=== PATIENT | female | born 1945 | race Caucasian/White ===

== ENCOUNTER 2017-11-23 15:52 | Inpatient (IN) ==
[2017-11-23] MEDS ORDERED: HYDROmorphone PF Inj 2 MG/ML Vial IV.PUSH STA ×2 (16:46→17:50)
[2017-11-23 17:25] LABS: Baso % (Auto) 0.2 % (0.0-2.0); Eos % (Auto) 0.1 % (0.0-4.0); Hematocrit 26.4 % (35.0-46.0); Lymph # (Auto) 0.3 th/mm3 (1.0-4.8); Lymph % (Auto) 1.6 % (9.0-44.0); Mean Corpuscular Volume 85.3 fL (80.0-100.0); Mono # (Auto) 0.7 th/mm3 (0.0-0.9); Mono % (Auto) 4.5 % (0.0-8.0); Neut # (Auto) 15.4 th/mm3 (1.8-7.7); Neut % (Auto) 93.6 % (16.0-70.0); Platelet Count 282 th/mm3 (150-450); Red Blood Count 3.09 mil/mm3 (4.00-5.30); Red Cell Distribution Width 15.5 % (11.6-17.2); White Blood Count 16.4 th/mm3 (4.0-11.0)
--- NOTE | 2017-11-23 17:39 | XR ---
EXAM DATE: 11/23/2017 5:34 PM EDT AGE/SEX: 71 years / Female INDICATIONS: Pain in right shoulder 2 weeks. CLINICAL DATA: This is the patient's initial encounter. Patient reports that signs and symptoms have been present for 1 day and indicates a pain score of 10/10. MEDICAL/SURGICAL HISTORY: None. None. COMPARISON: [facility] – [place], CT SHOULDER RIGHT W/O CONTRAST, 11/23/2017. . FINDINGS: The bone density is normal. A heavily comminuted fracture of the humeral head and surgical neck of th e humerus is identified. Displaced fracture fragments are seen. CONCLUSION: Right proximal humerus fracture. Electronically signed by: Ronaldo Crenshaw MD 11/23/2017 5:38 PM EDT
--- NOTE | 2017-11-23 17:46 | CT ---
EXAM DATE: 11/23/2017 5:35 PM EDT AGE/SEX: 71 years / Female INDICATIONS: Trauma; fall two weeks ago. CLINICAL DATA: This is the patient's initial encounter. Patient reports that signs and symptoms have been present for 2 weeks and indicates a pain score of 10/10. MEDICAL/SURGICAL HISTORY: Diabetes. None. RADIATION DOSE: 23.81 CTDI (mGy) COMPARISON: No prior exams available for comparison. TECHNIQUE: Multiple contiguous axial images were acquired using a multirow detector CT scanner witho ut contrast. Multiplanar reconstruction was performed in the sagittal and coronal planes. Using aut omated exposure control and adjustment of the mA and/or kV according to patient size, radiation dose was kept as low as reasonably achievable to obtain optimal diagnostic quality images. DICOM format i mage data is available electronically for review and comparison. FINDINGS: Thin section axial imaging through the right shoulder demonstrates a severely comminuted, impacted fr acture involving the right humeral neck and humeral head. The greater trochanter appears to be at jude st 2 separate fragments. There is fracture through the superior attachment of the rotator cuff as wel l. There is approximately 75-80% replacement of the more distal humerus relative to the humeral head. The glenoid labrum is intact. The scapula is intact. The clavicle is intact. CONCLUSION: 1. Comminuted fracture involving the humeral neck and humeral head. There is a proximally 70-80% dis placement of the humeral neck relative to the humeral head. No bone fragments are identified within t he joint. Electronically signed by: Ed Jackson MD 11/23/2017 5:45 PM EDT
[2017-11-23 17:47] LABS: Alanine Aminotransferase 30 U/L (10-53); Albumin 3.1 g/dL (3.4-5.0); Alkaline Phosphatase 92 U/L (45-117); Anion Gap 11 meq/L (5-15); Aspartate Aminotransferase 29 U/L (15-37); Blood Urea Nitrogen 39 mg/dL (7-18); Calcium 7.5 mg/dL (8.5-10.1); Carbon Dioxide 37.4 meq/L (21.0-32.0); Chloride 75 meq/L (98-107); Glomerular Filtration Rate 30 mL/min (>89); Glucose,Random 342 mg/dL (74-106); Total Protein 6.4 g/dL (6.4-8.2)
--- NOTE | 2017-11-23 17:58 | XR ---
EXAM DATE: 11/23/2017 5:36 PM EDT AGE/SEX: 71 years / Female INDICATIONS: Evaluate for pneumonia, pneumothorax, and or communicable disease. CLINICAL DATA: This is the patient's initial encounter. Patient reports that signs and symptoms have been present for 1 day and indicates a pain score of 0/10. MEDICAL/SURGICAL HISTORY: None. None. COMPARISON: . FINDINGS: The heart is enlarged. There are diffuse chronic appearing interstitial changes within the pulmonary parenchyma. There is a questionable pulmonary nodule on the right measuring 2.[address] imaging of the thorax would be warranted for further assessment. There is no pleural effusion. The visualized bony structures demonstrate degenerative changes but are otherwise intact. CONCLUSION: Diffuse chronic interstitial changes with possible pulmonary nodule on the right. CT imaging of the t horax is warranted for further assessment. Electronically signed by: Ed Jackson MD 11/23/2017 5:57 PM EDT
[2017-11-23 18:03] LABS: Sodium 123 meq/L (136-145)
[2017-11-23] MEDS ORDERED: Bisacodyl 10 MG Supp RECTAL PRN (18:47)
[2017-11-23] MEDS ORDERED: Acetaminophen 325 MG Tablet PO PRN (18:47)
--- NOTE | 2017-11-23 19:50 | ED ---
HPI General Chief complaint: Recheck/Abnormal Lab/Rx Stated complaint: Medical Time Seen by Provider: 11/23/17 16:04 Source: patient, family and old records reviewed History of Present Illness HPI narrative: 71-year-old woman presents emerged from with ongoing severe right shoulder pain after fall several days ago. States well and healthy with good ambulatory ability prior to fall. Lives alone. Since then she has got severe pain in the right arm. She is on chronic opiates for what sounds like back problems. She has been taking these at home and still having uncontrolled pain. She is given a referral to follow-up with Dr. Martin. When they called the office they were referred to Dr. Hutchison instead. They were told to get a CT scan at [place]. Given her uncontrolled pain worsening weakness not eating she was brought to the emergency department. Related Data Home Medications Medication Instructions Recorded Confirmed biotin 5,000 mcg SUBLINGUAL DAILY 11/23/17 11/23/17 chlorthalidone 25 mg PO DAILY 11/23/17 11/23/17 cyanocobalamin (vitamin B-12) 250 mcg PO DAILY 11/23/17 11/23/17 [Vitamin B-12] diltiazem HCl [Cardizem CD] 240 mg PO DAILY 11/23/17 11/23/17 duloxetine [Cymbalta] 40 mg PO DAILY 11/23/17 11/23/17 ergocalciferol (vitamin D2) 50,000 unit PO QWEEK 11/23/17 11/23/17 [Vitamin D2] furosemide [Lasix] 40 mg PO DAILY 11/23/17 11/23/17 gabapentin 600 mg PO 5 TIMES A DAY 11/23/17 11/23/17 hydroxychloroquine [Plaquenil] 200 mg PO BID 11/23/17 11/23/17 levothyroxine [Synthroid] 125 mcg PO DAILY 11/23/17 11/23/17 oxycodone-acetaminophen [Percocet] 1 tab PO Q4-6H PRN 11/23/17 11/23/17 prednisone 20 mg PO DAILY 11/23/17 11/23/17 ranitidine HCl [Zantac] 150 mg PO BID 11/23/17 11/23/17 umeclidinium-vilanterol [Anoro 1 inh INHALATION Q24H 11/23/17 11/23/17 Ellipta] Allergies Allergy/AdvReac Type Severity Reaction Status Date / Time influenza virus vaccine ts Allergy Hives Verified 11/23/17 15:59 [id number] (36 mos,up) [From Fluarix] Penicillins Allergy Hives Verified 11/23/17 15:59 Review of Systems ROS Unobtainable All other systems reviewed negative except as stated in [facility] Medical History Medical History Diabetes (Acute) Social History Social History Substance History: No History of Abuse Smoking Status: Former smoker How Often Do You Have a Drink Containing Alcohol: Never Recent Travel in [facility] within the Last 8 Weeks: No Recent Out of Country Travel within the Last 8 Weeks: No Immunization History Tetanus Immunization: >5 Years Exam Narrative Exam Narrative: GENERAL: 71-year-old woman, uncomfortable, wailing in bed. SKIN: Focused skin assessment warm/dry. HEAD: Atraumatic. Normocephalic. EYES: Pupils equal and round. No scleral icterus. No injection or drainage. ENT: No nasal bleeding or discharge. Mucous membranes pink and moist. NECK: Trachea midline. No JVD. CARDIOVASCULAR: Regular rate and rhythm. No murmur appreciated. RESPIRATORY: No accessory muscle use. Clear to auscultation. Breath sounds equal bilaterally. GASTROINTESTINAL: Abdomen soft, non-tender, nondistended. Hepatic and splenic margins not palpable. MUSCULOSKELETAL: Obvious bruising and edema and swelling to the proximal humerus and right shoulder. Pain with any range of motion. NEUROLOGICAL: Awake and alert. No obvious cranial nerve deficits. Motor grossly within normal limits. Normal speech. PSYCHIATRIC: Anxious. Course Initial Documented Vital Signs Temperature 99.0 F 11/23/17 16:08 Pulse Rate 94 H 11/23/17 16:08 Respiratory Rate 16 11/23/17 16:08 Blood Pressure 147/65 H 11/23/17 16:08 Pulse Oximetry 95 11/23/17 16:08 Last Documented Vital Signs Temperature 99.0 F 11/23/17 16:08 Pulse Rate 80 11/23/17 18:47 Respiratory Rate 18 11/23/17 18:47 Blood Pressure 139/63 11/23/17 18:47 Pulse Oximetry 97 11/23/17 18:47 Medical Decision Making [facility] Narrative Medical decision making narrative: This 71-year-old woman presents emerged department worsening pain, weakness, not eating. Unclear why she fell, sounds like she slipped in water appears pretty functional before that. Significant functional decline since the injury. Possibly related to increased pain medication usage. Patient already at risk for falls, 71, using more opiates, pain still uncontrolled. I do not think she is a candidate for discharge home. I called and spoke to Dr. Martin, states this could be followed up as an outpatient if she can be safely discharged. Discussed my concerns with him. I did obtain CT of the shoulder. She was also found to be hyponatremic. The degree to which the hyponatremia is contributing to her weakness is unclear. Plan for admission for further evaluation and treatment. Lab Data Result diagrams: 11/23/17 17:09 11/23/17 17:09 Lab Results 11/23/17 11/23/17 11/23/17 Range/Units 16:41 17:09 17:09 WBC 16.4 H (4.0-11.0) th/mm3 RBC 3.09 L (4.00-5.30) mil/mm3 Hgb 9.0 L (11.6-15.3) gm/dL Hct 26.4 L (35.0-46.0) % MCV 85.3 (80.0-100.0) fL MCH 29.0 (27.0-34.0) pg MCHC 34.0 (32.0-36.0) % RDW 15.5 (11.6-17.2) % Plt Count 282 (150-450) th/mm3 MPV 7.0 (7.0-11.0) fL Neut % (Auto) 93.6 H (16.0-70.0) % Lymph % (Auto) 1.6 L (9.0-44.0) % [place] % (Auto) 4.5 (0.0-8.0) % Eos % (Auto) 0.1 (0.0-4.0) % Baso % (Auto) 0.2 (0.0-2.0) % Neut # (Auto) 15.4 H (1.8-7.7) th/mm3 Lymph # (Auto) 0.3 L (1.0-4.8) th/mm3 [place] # (Auto) 0.7 (0.0-0.9) th/mm3 Eos # (Auto) 0.0 (0.0-0.4) th/mm3 Baso # (Auto) 0.0 (0.0-0.2) th/mm3 WBC Differential . Differential Comment Auto diff final Sodium 123 L* (136-145) meq/L Potassium 3.0 L (3.5-5.1) meq/L Chloride 75 L (98-107) meq/L Carbon Dioxide 37.4 H (21.0-32.0) meq/L Anion Gap 11 (5-15) meq/L BUN 39 H (7-18) mg/dL Creatinine 1.68 H (0.50-1.00) mg/dL Estimated GFR 30 L (>89) mL/min POC Glucose 393 H (68-110) mg/dl Random Glucose 342 H (74-106) mg/dL Calcium 7.5 L (8.5-10.1) mg/dL Total Bilirubin 0.8 (0.2-1.0) mg/dL AST 29 (15-37) U/L ALT 30 (10-53) U/L Alkaline Phosphatase 92 (45-117) U/L Total Protein 6.4 (6.4-8.2) g/dL Albumin 3.1 L (3.4-5.0) g/dL Imaging Data Radiologist's impression: Chest X-Ray 11/23/17 16:52 CONCLUSION: Diffuse chronic interstitial changes with possible pulmonary nodule on the right. CT imaging of the thorax is warranted for further assessment. Shoulder CT 11/23/17 16:52 CONCLUSION: 1. Comminuted fracture involving the humeral neck and humeral head. There is a proximally 70-80% displacement of the humeral neck relative to the humeral head. No bone fragments are identified within the joint. Shoulder X-Ray 11/23/17 16:52 CONCLUSION: Right proximal humerus fracture. Discharge Plan Discharge Disposition Patient Disposition: 30 Still Patient Physicians Team ED Provider: Joel Winslow Primary Care Provider: UNKNOWN, Attending Provider: Lin Stovall Discharge Interventions Interventions: Vital Signs Last Done: 11/23/17 16:08 Status ED Status: Admitted Patient
[2017-11-23] MEDS ORDERED: Sod Chloride 0.9% Inj 1,000 ML IV.CONT SCH (20:04)
[2017-11-23] MEDS ORDERED: Dextrose 50% in Water 50 ML Vial IV.PUSH PRN (20:04)
--- NOTE | 2017-11-23 20:47 | P.HPIM ---
History of Present Illness Primary Care Physician: UNKNOWN History of Present Illness: 71 y/o female with a history of DM, COPD, hypothyroid, and RA presented to the ER after having a fall at home on Tuesday. She was evaluated at [facility] , diagnosed with a fracture and sent home to follow up with an orthopedic. Upon examination patient has just received Dilaudid for pain and is very drowsy. Family is at bedside and is able to provide history. The brother states since Tuesday she has not been eating or drinking well and only taking pain medication. The orthopedic office did not call them back so she was unable to get an appointment. Her mentation has gotten worse over the passed few days as well and she has become weaker. Patient is able to open her eyes and denies pain , but falls back asleep quickly. Denies any pain and does not appear sob. Family denies any kidney issues. Inpatient Certification: I certify that the inpatient services were ordered in accordance with Medicare regulations governing the order. This includes certification that hospital inpatient services are reasonable and necessary and in the case of services not specified as inpatient-only under 42 CFR 419.22(n), that they are appropriately provided as inpatient services in accordance to with the 2-midnight benchmark under 43 CFR 412.3(e) Estimated Total Length of Stay (Days): 3 Plans for Post Hospital Care: SNF Review of Systems All other systems reviewed negative except as stated in HPI PMFSH - History History Provided By: Patient, Psychology Tech / EMT - Medical History Medical History: Medical History (Last Reviewed 11/23/17 @ 21:57 by Hieu Hendricks MD) Adult hypothyroidism COPD (chronic obstructive pulmonary disease) Diabetes H/O thyroidectomy Rheumatoid arthritis - Surgical History Surgical History: Surgical History (Last Reviewed 11/23/17 @ 21:57 by Hieu Hendricks MD) History of appendectomy History of colon resection History of knee replacement - Family History Family History: Family History (Last Reviewed 11/23/17 @ 21:57 by Hieu Hendricks MD) Father Colon cancer Mother Throat cancer Alzheimer disease - Tobacco History Smoking Status: Former smoker - Alcohol History How Often Do You Have a Drink Containing Alcohol: Never - Substance Use History Substance History: No History of Abuse - Travel History Recent Travel in the [place] Within the Last 8 Weeks: No Recent Travel Out of the Country Within the Last 8 Weeks: No - Immunization History Tetanus Immunization: >5 Years Medications and Allergies Active Medications: Active Medications Acetaminophen (Tylenol) 650 mg PO Q4H PRN PRN Reason: Temp > 100.4 Al Hydroxide/Mg Hydroxide (Milk Of Magnesia Liq) 30 ml PO Q12H PRN PRN Reason: Mild Constipation Bisacodyl (Dulcolax Supp) 10 mg RECTAL DAILY PRN PRN Reason: SEVERE CONSITIPATION Dextrose (D50w Vial) 50 ml IV.PUSH UNSCH PRN PRN Reason: PER HYPOGLYCEMIA PROTOCOL Glucagon (Glucagon Inj) 1 mg OTHER PRN PRN PRN Reason: for Hypoglycemia Protocol Sodium Chloride (Ns Inj) 1,000 mls @ 100 mls/hr IV.CONT .Q10H FERMIN Last Admin: 11/23/17 20:17 Dose: 100 mls/hr Insulin Aspart (Novolog Insulin Correctional Sugar Inj) 0 unit SQ ACHS FERMIN; Protocol Lactulose (Lactulose Liq) 30 ml PO DAILY PRN PRN Reason: SEVERE CONSITIPATION Ondansetron HCl (Zofran Inj) 4 mg IV.PUSH Q6H PRN PRN Reason: NAUSEA OR VOMITING Senna/Docusate Sodium (Yojana-Colace) 1 tab PO BID FERMIN Sennosides (Senokot) 17.2 mg PO Q12H PRN PRN Reason: Moderate Constipation Allergies Allergy/AdvReac Type Severity Reaction Status Date / Time influenza virus vaccine ts Allergy Hives Verified 11/23/17 15:59 [id number] (36 mos,up) [From Fluarix] Penicillins Allergy Hives Verified 11/23/17 15:59 Home Medications Medication Instructions Recorded Confirmed Type biotin 5,000 mcg SUBLINGUAL DAILY 11/23/17 11/23/17 History chlorthalidone 25 mg PO DAILY 11/23/17 11/23/17 History cyanocobalamin (vitamin B-12) 250 mcg PO DAILY 11/23/17 11/23/17 History [Vitamin B-12] diltiazem HCl [Cardizem CD] 240 mg PO DAILY 11/23/17 11/23/17 History duloxetine [Cymbalta] 40 mg PO DAILY 11/23/17 11/23/17 History ergocalciferol (vitamin D2) 50,000 unit PO QWEEK 11/23/17 11/23/17 History [Vitamin D2] furosemide [Lasix] 40 mg PO DAILY 11/23/17 11/23/17 History gabapentin 600 mg PO 5 TIMES A DAY 11/23/17 11/23/17 History hydroxychloroquine [Plaquenil] 200 mg PO BID 11/23/17 11/23/17 History levothyroxine [Synthroid] 125 mcg PO DAILY 11/23/17 11/23/17 History oxycodone-acetaminophen [Percocet] 1 tab PO Q4-6H PRN 11/23/17 11/23/17 History prednisone 20 mg PO DAILY 11/23/17 11/23/17 History ranitidine HCl [Zantac] 150 mg PO BID 11/23/17 11/23/17 History umeclidinium-vilanterol [Anoro 1 inh INHALATION Q24H 11/23/17 11/23/17 History Ellipta] Exam Vital signs: Vital Signs 11/23/17 16:08 11/23/17 18:47 Temperature 99.0 F Pulse Rate 94 H 80 Respiratory Rate 16 18 Blood Pressure 147/65 H 139/63 Pulse Oximetry 95 97 Intake & Output 11/23/17 11/23/17 11/24/17 06:59 18:59 06:59 Weight 88.451 kg Narrative: GENERAL: This is a well-nourished, well-developed patient, in no apparent distress. SKIN: Right shoulder ecchymotic CARDIOVASCULAR: Regular rate and rhythm without murmurs, gallops, or rubs. RESPIRATORY: Clear to auscultation. Breath sounds equal bilaterally. No wheezes , rales, or rhonchi. GASTROINTESTINAL: Abdomen soft, non-tender, nondistended. Normal active bowel sounds MUSCULOSKELETAL: Extremities without clubbing, cyanosis, or edema. NEURO: Lethargic but easy to arouse, limited rom with right upper extremity, moves lowers Results - Labs CBC & Chem 7: 11/23/17 17:09 11/23/17 17:09 Labs: Short CBC 11/23/17 Range/Units 17:09 WBC 16.4 H (4.0-11.0) th/mm3 Hgb 9.0 L (11.6-15.3) gm/dL Hct 26.4 L (35.0-46.0) % Plt Count 282 (150-450) th/mm3 BMP 11/23/17 17:09 Sodium 123 L* Potassium 3.0 L Chloride 75 L Carbon Dioxide 37.4 H BUN 39 H Creatinine 1.68 H Calcium 7.5 L Liver Function 11/23/17 Range/Units 17:09 Total Bilirubin 0.8 (0.2-1.0) mg/dL AST 29 (15-37) U/L ALT 30 (10-53) U/L Alkaline Phosphatase 92 (45-117) U/L Albumin 3.1 L (3.4-5.0) g/dL - Imaging Impressions Chest X-Ray 11/23/17 16:52 CONCLUSION: Diffuse chronic interstitial changes with possible pulmonary nodule on the right. CT imaging of the thorax is warranted for further assessment. Shoulder CT 11/23/17 16:52 CONCLUSION: 1. Comminuted fracture involving the humeral neck and humeral head. There is a proximally 70-80% displacement of the humeral neck relative to the humeral head. No bone fragments are identified within the joint. Shoulder X-Ray 11/23/17 16:52 CONCLUSION: Right proximal humerus fracture. Caprini VTE Risk Assessment Caprini VTE Risk Assessment: Moderate/High Risk (score >= 2) Caprini Risk Assessment Model: Point Value = 1 Point Value = 2 Point Value = 3 Point Value = 5 Age 41-60 Minor surgery BMI > 25 kg/m2 Swollen legs Varicose veins or History of unexplained or recurrent spontaneous Oral contraceptives or hormone replacement Sepsis (< 1 month) Serious lung disease, including pneumonia (< 1 month) Abnormal pulmonary function Acute myocardial infarction Congestive heart failure (< 1 month) History of inflammatory bowel disease Medical patient at bed rest Age 61-74 Arthroscopic surgery Major open surgery (> 45 min) Laparoscopic surgery (> 45 min) Malignancy Confined to bed (> 72 hours) Immobilizing plaster cast Central venous access Age >= 75 History of VTE Family history of VTE Factor V Leiden Prothrombin [id number] Lupus anticoagulant Anticardiolipin antibodies Elevated serum homocysteine Heparin-induced thrombocytopenia Other congenital or acquired thrombophilia Stroke (< 1 month) Elective arthroplasty Hip, pelvis, or leg fracture Acute spinal cord injury (< 1 month) Prophylaxis Regimen: Total Risk Factor Score Risk Level Prophylaxis Regimen 0-1 Low Early ambulation 2 Moderate Order ONE of the following: *Sequential Compression Device (SCD) *Heparin 5000 units SQ BID 3-4 Higher Order ONE of the following medications: *Heparin 5000 units SQ TID *Enoxaparin/Lovenox 40 mg SQ daily (WT < 150 kg, CrCl > 30 mL/min) *Enoxaparin/Lovenox 30 mg SQ daily (WT < 150 kg, CrCl > 10-29 mL/min) *Enoxaparin/Lovenox 30 mg SQ BID (WT < 150 kg, CrCl > 30 mL/min) AND/OR *Sequential Compression Device (SCD) 5 or more Highest Order ONE of the following medications: *Heparin 5000 units SQ TID (Preferred with Epidurals) *Enoxaparin/Lovenox 40 mg SQ daily (WT < 150 kg, CrCl > 30 mL/min) *Enoxaparin/Lovenox 30 mg SQ daily (WT < 150 kg, CrCl > 10-29 mL/min) *Enoxaparin/Lovenox 30 mg SQ BID (WT < 150 kg, CrCl > 30 mL/min) AND *Sequential Compression Device (SCD) Assessment and Plan - Plan 71 y/o female with a history of DM, COPD, hypothyroid, and RA presented to the ER after having a fall at home on Tuesday. Right humerus fracture CT reviewed and shows a comminuted fracture involving the humeral neck and humeral head. -Consult to orthopedics -Pain management with IV morphine -NPO Acute kidney injury, creatine 1.6, unknown baseline, family denies kidney issues , likely due to dehydration -IVF for hydration -Trend creatine -Avoid nephrotoxins Hyponatremia, likely secondary to dehydration -Serial sodiums Q6H -IVF as above DM, chronic, currently uncontrolled -Accu checks with SSI copd, chronic not in exacerbation -Duonebs prn HTN, chronic -Resume home medications, monitor vitals. DVT prophylaxis: SCDs Discussed Condition With: Patient, RN and patients family
--- NOTE | 2017-11-23 22:08 | P.CONOP ---
[facility] Orthopedics Consult Note - [facility] Consult date: 11/23/17 Consult reason: fracture Chief complaint: Hyponatremia, Humerus Fracture Narrative: The patient is a 71-year-old diabetic female who fell in her home at the end of last week. She sustained significant injury to her right shoulder. She states that this was a straightforward trip and fall. She denied dizziness or loss of consciousness or other injuries other than the injury to her shoulder. She was taken by her family to [facility] on 11/18/2017 and diagnosed with a proximal humerus fracture. She was instructed to follow- up with orthopedic surgeon in outpatient setting. An appointment was not immediately available to her. She was advised to have a CT scan performed. Patient was then marked amount of pain and finding it difficult to care for herself and her family brought her to [facility] where she was further worked up with a CT scan which showed a comminuted right proximal humerus fracture with significant displacement of the humeral neck portion of the fracture, a 70% displacement. Based on her pain and disability and dysfunction she was indicated for admission to stabilize her pain and obtain orthopedic consultation. Consultation is now requested with the undersigned. 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 - Medical History Medical History: Medical History (Last Reviewed 11/23/17 @ 21:57 by Hieu Hendricks MD) Adult hypothyroidism COPD (chronic obstructive pulmonary disease) Diabetes H/O thyroidectomy Rheumatoid arthritis - Surgical History Surgical History: Surgical History (Last Reviewed 11/23/17 @ 21:57 by Hieu Hendricks MD) History of appendectomy History of colon resection History of knee replacement - Family History Family History: Family History (Last Reviewed 11/23/17 @ 21:57 by Hieu Hendricks MD) Father Colon cancer Mother Throat cancer Alzheimer disease - Tobacco History Smoking Status: Former smoker - Alcohol History How Often Do You Have a Drink Containing Alcohol: Never - Substance Use History Substance History: No History of Abuse - Travel History Recent Travel in the [place] Within the Last 8 Weeks: No Recent Travel Out of the Country Within the Last 8 Weeks: No - Immunization History Tetanus Immunization: >5 Years Medications and Allergies Active Medications: Active Medications Acetaminophen (Tylenol) 650 mg PO Q4H PRN PRN Reason: Temp > 100.4 Al Hydroxide/Mg Hydroxide (Milk Of Magnesia Liq) 30 ml PO Q12H PRN PRN Reason: Mild Constipation Bisacodyl (Dulcolax Supp) 10 mg RECTAL DAILY PRN PRN Reason: SEVERE CONSITIPATION Dextrose (D50w Vial) 50 ml IV.PUSH UNSCH PRN PRN Reason: PER HYPOGLYCEMIA PROTOCOL Glucagon (Glucagon Inj) 1 mg OTHER PRN PRN PRN Reason: for Hypoglycemia Protocol Sodium Chloride (Ns Inj) 1,000 mls @ 100 mls/hr IV.CONT .Q10H FERMIN Last Admin: 11/23/17 20:17 Dose: 100 mls/hr Insulin Aspart (Novolog Insulin Correctional Sugar Inj) 0 unit SQ ACHS FERMIN; Protocol Lactulose (Lactulose Liq) 30 ml PO DAILY PRN PRN Reason: SEVERE CONSITIPATION Ondansetron HCl (Zofran Inj) 4 mg IV.PUSH Q6H PRN PRN Reason: NAUSEA OR VOMITING Senna/Docusate Sodium (Yojana-Colace) 1 tab PO BID FERMIN Sennosides (Senokot) 17.2 mg PO Q12H PRN PRN Reason: Moderate Constipation Allergies Allergy/AdvReac Type Severity Reaction Status Date / Time influenza virus vaccine ts Allergy Hives Verified 11/23/17 15:59 [id number] (36 mos,up) [From Fluarix] Penicillins Allergy Hives Verified 11/23/17 15:59 Home Medications Medication Instructions Recorded Confirmed Type biotin 5,000 mcg SUBLINGUAL DAILY 11/23/17 11/23/17 History chlorthalidone 25 mg PO DAILY 11/23/17 11/23/17 History cyanocobalamin (vitamin B-12) 250 mcg PO DAILY 11/23/17 11/23/17 History [Vitamin B-12] diltiazem HCl [Cardizem CD] 240 mg PO DAILY 11/23/17 11/23/17 History duloxetine [Cymbalta] 40 mg PO DAILY 11/23/17 11/23/17 History ergocalciferol (vitamin D2) 50,000 unit PO QWEEK 11/23/17 11/23/17 History [Vitamin D2] furosemide [Lasix] 40 mg PO DAILY 11/23/17 11/23/17 History gabapentin 600 mg PO 5 TIMES A DAY 11/23/17 11/23/17 History hydroxychloroquine [Plaquenil] 200 mg PO BID 11/23/17 11/23/17 History levothyroxine [Synthroid] 125 mcg PO DAILY 11/23/17 11/23/17 History oxycodone-acetaminophen [Percocet] 1 tab PO Q4-6H PRN 11/23/17 11/23/17 History prednisone 20 mg PO DAILY 11/23/17 11/23/17 History ranitidine HCl [Zantac] 150 mg PO BID 11/23/17 11/23/17 History umeclidinium-vilanterol [Anoro 1 inh INHALATION Q24H 11/23/17 11/23/17 History Ellipta] Exam Vital signs: Vital Signs 11/23/17 16:08 11/23/17 18:47 11/23/17 20:30 Temperature 99.0 F Pulse Rate 94 H 80 76 Respiratory Rate 16 18 18 Blood Pressure 147/65 H 139/63 122/60 Pulse Oximetry 95 97 95 11/23/17 21:00 Temperature Pulse Rate Respiratory Rate 18 Blood Pressure Pulse Oximetry Intake & Output 11/23/17 11/23/17 11/24/17 06:59 18:59 06:59 Weight 88.451 kg - Constitutional mild distress, obese - Routine HEENT Exam Head: Present: normocephalic, atraumatic Eye: Present: EOMI, PERRL ENT: Present: mucous membranes moist, mucous membranes dry - Routine Neck Exam Present: supple - Routine Abdominal Exam Present: soft - Routine Extremities Exam Comments: Left upper extremity examination is benign. Bilateral lower extremity examination is benign. Right upper extremity is in a sling. She has marked ecchymosis about the right shoulder and upper arm with moderate swelling. Mild tenderness of the elbow. No tenderness of the wrist. At the level of the hand she has motor and sensory intact. Good capillary refill. Radial pulse intact. Results - Labs Result Diagrams: 11/23/17 17:09 11/23/17 17:09 Labs: Laboratory Results - last 24 hr 11/23/17 11/23/17 11/23/17 16:41 17:09 17:09 WBC 16.4 H RBC 3.09 L Hgb 9.0 L Hct 26.4 L MCV 85.3 MCH 29.0 MCHC 34.0 RDW 15.5 Plt Count 282 MPV 7.0 Neut % (Auto) 93.6 H Lymph % (Auto) 1.6 L [place] % (Auto) 4.5 Eos % (Auto) 0.1 Baso % (Auto) 0.2 Neut # (Auto) 15.4 H Lymph # (Auto) 0.3 L [place] # (Auto) 0.7 Eos # (Auto) 0.0 Baso # (Auto) 0.0 WBC Differential . Differential Comment Auto diff final Sodium 123 L* Potassium 3.0 L Chloride 75 L Carbon Dioxide 37.4 H Anion Gap 11 BUN 39 H Creatinine 1.68 H Estimated GFR 30 L POC Glucose 393 H Random Glucose 342 H Calcium 7.5 L Total Bilirubin 0.8 AST 29 ALT 30 Alkaline Phosphatase 92 Total Protein 6.4 Albumin 3.1 L - Diagnostic results Imaging: Impressions Chest X-Ray 11/23/17 16:52 CONCLUSION: Diffuse chronic interstitial changes with possible pulmonary nodule on the right. CT imaging of the thorax is warranted for further assessment. Shoulder CT 11/23/17 16:52 CONCLUSION: 1. Comminuted fracture involving the humeral neck and humeral head. There is a proximally 70-80% displacement of the humeral neck relative to the humeral head. No bone fragments are identified within the joint. Shoulder X-Ray 11/23/17 16:52 CONCLUSION: Right proximal humerus fracture. Assessment and Plan - Problem List (1) Fracture of proximal humerus Code(s): S42.209A - Unspecified fracture of upper end of unspecified humerus, initial encounter for closed fracture Status: Acute Qualifiers: Plan: Condition of right proximal humerus fracture with comminution and displacement was discussed and the options of treatment were discussed. Surgical and nonsurgical management was discussed. The recommendation is surgical repair. I reviewed with her the plan of open reduction and internal fixation using plate and screw construct. We did also talk about the possibility of the fracture comminuting during the operation and the possible need for a bigger surgery, a reverse total shoulder replacement. The planned surgical technique was discussed in detail. We discussed the inherent risks of surgical intervention including the risk of infection, bleeding, blood loss, possible need for blood transfusion, risk of blood vessel injury, risk of nerve injury, risk of mechanical complications which possibly would necessitate future surgery, anesthetic risk, medical risk, and the possibility of unforeseen possible complications. We had a very thorough discussion. All questions were answered. The patient wishes to press on with surgery. I explained to her that I currently have a very busy busy schedule and that I am hopeful that we can do the surgery in the early evening tomorrow. She will be evaluated by the medical service. Hopefully she can be cleared by tomorrow evening so that we can press on with surgical intervention. All of her questions and her sister's questions were answered. Informed consent was obtained. A mid level provider in my office, nurse practitioner or PA, may see this patient on a follow up basis and continue to implement the plan including: starting or adjusting medications, injections of muscle, tendons, bursa or joints, cast application, orthotic or brace application, physical therapy, further radiographic studies including X-ray, MRI, CT, ultrasound or bone scan , vascular studies, neurological studies, or other specialist consultations, and proceeding with surgical management as appropriate.
[2017-11-23] MEDS ORDERED: Morphine Inj 4 MG/ML Vial IV.PUSH PRN (22:11)
[2017-11-23] MEDS: Insulin NovoLOG Aspart Correctional Sugar Inj SQ SCH (22:14)
[2017-11-23] MEDS: Senna/Docusate Sodium 8.6/50 MG Tablet PO SCH (22:14)
[2017-11-24] MEDS ORDERED: Metoprolol Tartrate 25 MG Tablet PO SCH (00:45)
[2017-11-24] MEDS ORDERED: Chlorhexidine Gluconate 2% 1 Pack (2 Cloths) TOPICAL SCH (00:45)
[2017-11-24 01:00] LABS: Calcium 6.9 mg/dL (8.5-10.1); Carbon Dioxide 41.3 meq/L (21.0-32.0)
[2017-11-24] MEDS ORDERED: Sodium Chlor 0.9% Inj 500 ML IV.SIG SCH (01:00)
[2017-11-24 01:09] LABS: Potassium 2.6 meq/L (3.5-5.1)
[2017-11-24 01:23] LABS: Total Protein 5.8 g/dL (6.4-8.2)
[2017-11-24] MEDS: Potassium Chlor 20 mEq Premix 20 MEQ/100 ML PIGGYBACK IV.SIG SCH ×2 (01:35→06:02)
[2017-11-24 05:01] LABS: Baso % (Auto) 0.2 % (0.0-2.0); Eos % (Auto) 0.1 % (0.0-4.0); Hematocrit 28.6 % (35.0-46.0); Hemoglobin 9.7 gm/dL (11.6-15.3); Lymph # (Auto) 0.6 th/mm3 (1.0-4.8); Lymph % (Auto) 4.9 % (9.0-44.0); Mean Corpuscular HGB Conc 33.8 % (32.0-36.0); Mean Corpuscular Hemoglobin 28.8 pg (27.0-34.0); Mean Corpuscular Volume 85.2 fL (80.0-100.0); Mean Platelet Volume 6.8 fL (7.0-11.0); Mono # (Auto) 0.7 th/mm3 (0.0-0.9); Mono % (Auto) 6.1 % (0.0-8.0); Neut # (Auto) 10.4 th/mm3 (1.8-7.7); Neut % (Auto) 88.7 % (16.0-70.0); Platelet Count 240 th/mm3 (150-450); Red Blood Count 3.35 mil/mm3 (4.00-5.30); Red Cell Distribution Width 15.6 % (11.6-17.2); White Blood Count 11.7 th/mm3 (4.0-11.0)
[2017-11-24] MEDS: Levothyroxine 125 MCG Tablet PO SCH (06:02)
[2017-11-24] MEDS: Insulin NovoLOG Aspart Correctional Sugar Inj SQ SCH ×4 (07:54→21:17)
[2017-11-24 08:33] LABS: Calcium 7.8 mg/dL (8.5-10.1); Carbon Dioxide 36.4 meq/L (21.0-32.0); Magnesium 2.4 mg/dL (1.5-2.5); Potassium 3.2 meq/L (3.5-5.1)
[2017-11-24] MEDS ORDERED: Furosemide 40 MG Tablet PO SCH (09:00)
[2017-11-24] MEDS: Senna/Docusate Sodium 8.6/50 MG Tablet PO SCH ×2 (09:59→21:06)
[2017-11-24] MEDS: PT OWN CHLORTHALIDONE 25 MG PO SCH (09:59)
[2017-11-24] MEDS: predniSONE 20 MG Tablet PO SCH (09:59)
[2017-11-24] MEDS: dilTIAZem CD 240 MG Capsule PO SCH (10:00)
[2017-11-24] MEDS ORDERED: Neostigmine Inj 5 MG/5 ML Syringe IV.PUSH ONE (12:00)
[2017-11-24] MEDS ORDERED: Glycopyrrolate Inj 1 MG/5 ML Syringe IV.PUSH ONE (12:00)
[2017-11-24] MEDS ORDERED: Lidocaine PF 1% Inj 5 ML Syringe INFILTRATN ONE (12:00)
[2017-11-24] MEDS ORDERED: Post-op Orders (for Pharmacy) OTHER STA (12:29)
[2017-11-24] MEDS ORDERED: fentaNYL Citrate Inj 100 MCG/2 ML Ampul ONE (12:51)
[2017-11-24] MEDS ORDERED: Insulin NovoLIN Regular Correctional Sugar Inj ONE (12:57)
[2017-11-24] MEDS ORDERED: *morphine SULFATE 4 MG/ML PERIprocedure ONLY ONE (13:04)
--- NOTE | 2017-11-24 13:28 | MP ---
cc: Hieu Hendricks MD DATE OF OPERATION: 11/24/2017 PREOPERATIVE DIAGNOSIS: Right proximal humerus comminuted fracture involving the head and neck with displacement. POSTOPERATIVE DIAGNOSIS: Right proximal humerus comminuted fracture involving the head and neck with displacement. PROCEDURE PERFORMED: Right shoulder open reduction internal fixation using [employer] Specialty proximal humerus locking plate with multiple proximal screw holes and 3 shaft screw holes. ANESTHETIC: General. SURGEON: Hieu Hendricks MD CAFETERIA ASSISTANT: Staff. COMPLICATIONS: None known. ESTIMATED BLOOD LOSS: 100 mL. INDICATIONS: Almita Crow is a 71-year-old diabetic female who sustained a fall in her home and sustained a severe right proximal humerus fracture. She was initially seen at [facility] and discharged with instructions to followup in the orthopedic surgeon's office with debilitating pain and inability to care for herself. She presented to [facility] where she was admitted to the medical service with consultation placed with the undersigned. The risks, benefits and alternatives of treatment were thoroughly discussed and a detailed informed consent was obtained. DESCRIPTION OF PROCEDURE: The patient was brought to the operating room. She was given IV antibiotics. The right upper extremity was prepped and draped in the usual sterile fashion. Timeout completed. Anterior approach to the shoulder. Meticulous hemostasis deltopectoral interval. The cephalic vein was mobilized laterally with the deltoid muscle. The axillary nerve was palpated. The displaced fracture site was noted. There was separation of humeral head fragments and we manipulated the fracture fragments and used fluoroscopy and reduction clamps to align this and then proceeded to perform a [id number] repair with #2 FiberWire sutures. We then proceeded to manipulate the highly comminuted metaphyseal neck region and the major fragments of the head of the shaft were aligned and felt to be in good alignment. We then placed a total of 5 #2 FiberWire suture anchors in the rotator cuff with 2 posteriorly, 1 superiorly and 2 anteriorly. We then fixated the plate laterally and did provisional fixation with a K-wire and then used our variable cortical screw in the oblong screw hole and then reduced the fracture site with this aligned. We then used our central screw proximally and found it to be in good position, AP and lateral plane and then we proceeded with tying down the #2 FiberWire and then we proceeded with placing our proximal screws and then our 2 distal screws. Final fluoroscopic x-rays, AP, lateral and 45-degree oblique views showed the final result. We irrigated out with copious amounts of irrigation. We proceeded to close in layers with absorbable suture, subcuticular on the skin. Steri-Strips applied, sterile dressing applied. The patient was awoken and returned to recovery room in stable condition. MD NURY Alexandra/JULI , 01:00 PM , 01:12 PM
--- NOTE | 2017-11-24 13:55 | XR ---
EXAM DATE: 11/24/2017 1:53 PM EDT AGE/SEX: 72 years / Female INDICATIONS: Right shoulder open reduction internal fixation. CLINICAL DATA: This is the patient's initial encounter. Patient reports that signs and symptoms have been present for 1 day and indicates a pain score of Nonresponsive. MEDICAL/SURGICAL HISTORY: None. None. COMPARISON: No prior exams available for comparison. FINDINGS: There are postsurgical changes with operative reduction and internal fixation of the previously seen fracture. The alignment is anatomic. CONCLUSION: Postsurgical changes as above. Electronically signed by: Trevon Veliz MD 11/24/2017 1:53 PM EDT
--- NOTE | 2017-11-24 15:55 | ECG ---
Date Performed: 11/23/2017 Time Performed: 17:39:47 PTAGE: 71 years EKG: Sinus rhythm POSSIBLE RIGHT ATRIAL ENLARGEMENT LEFT ATRIAL ENLARGEMENT INDETERMINATE AXIS MODERATE ST DEPRESSION Poor R wave progression. Clinical correlation is recommended ABNORMAL ECG NO PREVIOUS TRACING DOCTOR: Sulaiman Ogden Interpretating Date/Time 11/24/2017 15:53:35
[2017-11-24] MEDS: Hydroxychloroquine 200 MG Tablet PO SCH ×2 (16:31→21:05)
[2017-11-24] MEDS: Sodium Chloride 0.45 % Inj 1,000 ML IV.CONT SCH (16:52)
--- NOTE | 2017-11-24 17:12 | P.PNIM ---
Subjective Interval history: Status post surgery, BGs have been elevated since after surgery where she received Decadron. Pain is controlled. Denies any chest pain, shortness of breath or nausea. Physical Exam Vital signs: Vital Signs 11/23/17 18:47 11/23/17 20:30 11/23/17 21:00 Temperature Pulse Rate 80 76 Respiratory Rate 18 18 18 Blood Pressure 139/63 122/60 Pulse Oximetry 97 95 11/23/17 21:54 11/23/17 22:51 11/24/17 03:27 Temperature 97.9 F 99.4 F Pulse Rate 79 83 Respiratory Rate 17 17 Blood Pressure 132/58 L 136/63 Pulse Oximetry 95 95 95 11/24/17 04:02 11/24/17 08:00 11/24/17 12:41 Temperature 98.8 F 99.0 F Pulse Rate 85 81 80 Respiratory Rate 16 17 Blood Pressure 134/60 142/67 H Pulse Oximetry 98 93 L 11/24/17 12:45 11/24/17 13:00 11/24/17 13:15 Temperature Pulse Rate 77 74 71 Respiratory Rate 17 17 17 Blood Pressure 153/68 H 141/63 H 133/61 Pulse Oximetry 97 95 93 L 11/24/17 13:30 11/24/17 13:45 11/24/17 14:00 Temperature Pulse Rate 70 71 71 Respiratory Rate 17 18 Blood Pressure 125/60 130/59 L 127/61 Pulse Oximetry 95 96 96 11/24/17 14:55 11/24/17 16:00 Temperature 98.8 F 98.3 F Pulse Rate 69 70 Respiratory Rate 19 16 Blood Pressure 118/57 L 148/63 H Pulse Oximetry 97 97 Intake & Output 11/23/17 11/24/17 11/24/17 18:59 06:59 18:59 Intake Total 100 / 100 900 / 900 Output Total 50 / 50 Balance 100 / 100 850 / 850 Weight 88.451 kg 88.45 kg Intake: IV 100 / 100 KCl 20 mEq Premix Inj 20 meq In 100 / 100 100 ml @ 50 mls/hr IV.SIG Q2H FERMIN Rx#:[id number] Oral 0 / 0 Anesthesia Amount 900 / 900 Output: Estimated Blood Loss 50 / 50 Other: # Voids 3 Date of Last Bowel Movement 11/21/17 11/22/17 # Bowel Movements 0 Weight On Admission 88.45 kg Narrative: GENERAL: This is a well-nourished, well-developed patient, in no apparent distress. CARDIOVASCULAR: Regular rate and rhythm without murmurs, gallops, or rubs. RESPIRATORY: Clear to auscultation. Breath sounds equal bilaterally. No wheezes , rales, or rhonchi. GASTROINTESTINAL: Abdomen soft, non-tender, nondistended. Normal active bowel sounds MUSCULOSKELETAL: Extremities without clubbing, cyanosis, or edema. Right upper arm sling in place. NEURO: Awake, alert, oriented 3. No focal deficits. Results - Labs CBC & Chem 7: 11/24/17 04:21 11/24/17 07:54 Laboratory Results - last 24 hr 11/23/17 11/23/17 11/23/17 17:09 17:09 22:13 WBC 16.4 H RBC 3.09 L Hgb 9.0 L Hct 26.4 L MCV 85.3 MCH 29.0 MCHC 34.0 RDW 15.5 Plt Count 282 MPV 7.0 Neut % (Auto) 93.6 H Lymph % (Auto) 1.6 L [place] % (Auto) 4.5 Eos % (Auto) 0.1 Baso % (Auto) 0.2 Neut # (Auto) 15.4 H Lymph # (Auto) 0.3 L [place] # (Auto) 0.7 Eos # (Auto) 0.0 Baso # (Auto) 0.0 WBC Differential . Differential Comment Auto diff final Hematology Comments Sodium 123 L* Potassium 3.0 L Chloride 75 L Carbon Dioxide 37.4 H Anion Gap 11 BUN 39 H Creatinine 1.68 H Estimated GFR 30 L POC Glucose 351 H Random Glucose 342 H Calcium 7.5 L Prot Corrected Calcium Magnesium Total Bilirubin 0.8 AST 29 ALT 30 Alkaline Phosphatase 92 Total Protein 6.4 Albumin 3.1 L 11/24/17 11/24/17 11/24/17 00:14 04:21 07:43 WBC 11.7 H RBC 3.35 L Hgb 9.7 L Hct 28.6 L MCV 85.2 MCH 28.8 MCHC 33.8 RDW 15.6 Plt Count 240 MPV 6.8 L Neut % (Auto) 88.7 H Lymph % (Auto) 4.9 L [place] % (Auto) 6.1 Eos % (Auto) 0.1 Baso % (Auto) 0.2 Neut # (Auto) 10.4 H Lymph # (Auto) 0.6 L [place] # (Auto) 0.7 Eos # (Auto) 0.0 Baso # (Auto) 0.0 WBC Differential . Differential Comment Auto diff final Hematology Comments Sodium 127 L Potassium 2.6 L* Chloride 80 L Carbon Dioxide 41.3 H Anion Gap 6 BUN 35 H Creatinine 1.41 H Estimated GFR 37 L POC Glucose 205 H Random Glucose 241 H D Calcium 6.9 L* Prot Corrected Calcium 7.6 L Magnesium Total Bilirubin AST ALT Alkaline Phosphatase Total Protein 5.8 L D Albumin 11/24/17 11/24/17 11/24/17 07:54 12:46 13:33 WBC RBC Hgb Hct MCV MCH MCHC RDW Plt Count MPV Neut % (Auto) Lymph % (Auto) [place] % (Auto) Eos % (Auto) Baso % (Auto) Neut # (Auto) Lymph # (Auto) [place] # (Auto) Eos # (Auto) Baso # (Auto) WBC Differential Differential Comment Hematology Comments Sodium 128 L Potassium 3.2 L Chloride 81 L Carbon Dioxide 36.4 H Anion Gap 11 BUN 31 H Creatinine 1.30 H Estimated GFR 40 L POC Glucose 306 H 365 H Random Glucose 185 H Calcium 7.8 L D Prot Corrected Calcium Magnesium 2.4 Total Bilirubin AST ALT Alkaline Phosphatase Total Protein Albumin 11/24/17 11/24/17 11/24/17 13:35 14:33 16:16 WBC RBC Hgb Hct MCV MCH MCHC RDW Plt Count MPV Neut % (Auto) Lymph % (Auto) [place] % (Auto) Eos % (Auto) Baso % (Auto) Neut # (Auto) Lymph # (Auto) [place] # (Auto) Eos # (Auto) Baso # (Auto) WBC Differential Differential Comment Hematology Comments Sodium Potassium Chloride Carbon Dioxide Anion Gap BUN Creatinine Estimated GFR POC Glucose 371 H 390 H 300 H Random Glucose Calcium Prot Corrected Calcium Magnesium Total Bilirubin AST ALT Alkaline Phosphatase Total Protein Albumin - Imaging Impressions Chest X-Ray 11/23/17 16:52 CONCLUSION: Diffuse chronic interstitial changes with possible pulmonary nodule on the right. CT imaging of the thorax is warranted for further assessment. Shoulder CT 11/23/17 16:52 CONCLUSION: 1. Comminuted fracture involving the humeral neck and humeral head. There is a proximally 70-80% displacement of the humeral neck relative to the humeral head. No bone fragments are identified within the joint. Shoulder X-Ray 11/23/17 16:52 CONCLUSION: Right proximal humerus fracture. Shoulder X-Ray 11/24/17 00:00 CONCLUSION: Postsurgical changes as above. Assessment and Plan - Plan 71 y/o female with a history of DM, COPD, hypothyroid, and RA presented to the ER after having a fall at home on Tuesday. Right humerus fracture CT reviewed and shows a comminuted fracture involving the humeral neck and humeral head. Orthopedics consulted, status post surgery 05/2017, continue pain control. Acute kidney injury-creatinine 1.6-8 on admission, improving, down to 1.3, continue IVF, recheck BMP tomorrow. Hyponatremia, likely secondary to dehydration, improving, from 123 now up to 128 , continue normal saline. Recheck BMP tomorrow. DM, chronic, currently uncontrolled, per patient secondary to prednisone -Accu checks with SSI increase sliding-scale to high-dose. copd, chronic not in exacerbation -Duonebs prn Rheumatoid arthritis having continue prednisone HTN, chronic -Resume home medications, monitor vitals. DVT prophylaxis: SCDs
[2017-11-24] MEDS: ceFAZolin Inj 2,000 MG in Sodium Chlor 0.9% Inj 80 ML IV.SIG SCH (17:58)
[2017-11-25] MEDS: ceFAZolin Inj 2,000 MG in Sodium Chlor 0.9% Inj 80 ML IV.SIG SCH ×2 (00:05→12:37)
[2017-11-25] MEDS: Insulin NovoLOG Aspart Correctional Sugar Inj SQ SCH ×5 (01:07→21:13)
[2017-11-25] MEDS: Sodium Chloride 0.45 % Inj 1,000 ML IV.CONT SCH (01:08)
[2017-11-25 06:36] LABS: Calcium 7.5 mg/dL (8.5-10.1); Carbon Dioxide 35.3 meq/L (21.0-32.0); Potassium 3.2 meq/L (3.5-5.1)
--- NOTE | 2017-11-25 08:00 | P.OP ---
- Preoperative Diagnosis (1) Fracture of proximal humerus - Postoperative Diagnosis (1) Fracture of proximal humerus Date of procedure: 11/24/17 Procedure: Right proximal humerus open reduction and internal fixation Implants: Synthes proximal humeral plate Anesthesia: GETA Surgeon: Hieu Hendricks MD Estimated blood loss (mL): 200 Pathology: none sent Operation and Findings: See dictation
--- NOTE | 2017-11-25 08:07 | P.PNOP ---
Subjective Interval history: Pain control. She hasn't walked in several days. Physical Exam Vital signs: Vital Signs 11/24/17 12:41 11/24/17 12:45 11/24/17 13:00 Temperature 99.0 F Pulse Rate 80 77 74 Respiratory Rate 17 17 17 Blood Pressure 142/67 H 153/68 H 141/63 H Pulse Oximetry 93 L 97 95 11/24/17 13:15 11/24/17 13:30 11/24/17 13:45 Temperature Pulse Rate 71 70 71 Respiratory Rate 17 17 Blood Pressure 133/61 125/60 130/59 L Pulse Oximetry 93 L 95 96 11/24/17 14:00 11/24/17 14:55 11/24/17 16:00 Temperature 98.8 F 98.3 F Pulse Rate 71 69 70 Respiratory Rate 18 19 16 Blood Pressure 127/61 118/57 L 148/63 H Pulse Oximetry 96 97 97 11/24/17 20:00 11/25/17 00:00 11/25/17 04:00 Temperature 98.2 F 98.1 F 98.0 F Pulse Rate 67 78 74 Respiratory Rate 18 16 16 Blood Pressure 133/68 130/69 118/68 Pulse Oximetry 100 94 L 95 Intake & Output 11/24/17 11/25/17 11/25/17 18:59 06:59 18:59 Intake Total 1999 / 1999 1000 / 1000 Output Total 50 / 50 Balance 1949 / 1949 1000 / 1000 Intake: IV 1100 / 1100 1000 / 1000 NS + KCl 20 mEq Inj 1,000 ML @ 1000 / 1000 100 mls/hr IV.CONT .Q10H FERMIN Rx #:[id number] 1/2 Normal Saline Inj 1,000 ML 1000 / 1000 @ 100 mls/hr IV.CONT .Q10H FERMIN Rx#:[id number] Ancef Inj 2,000 MG In NS Inj 80 100 / 100 ML @ 200 mls/hr IV.SIG Q8H FERMIN Rx#:[id number] Anesthesia Amount 900 / 900 Output: Estimated Blood Loss 50 / 50 Other: Date of Last Bowel Movement 11/22/17 11/22/17 - Constitutional no acute distress - Routine HEENT Exam Head: Present: normocephalic - Detailed Upper Extremity Exam Comments: Right shoulder. Dressing in place. Elbow and wrist nontender. Neurologic and vascular exams intact Results - Labs CBC & Chem 7: 11/24/17 04:21 11/25/17 04:15 Laboratory Results - last 24 hr 11/24/17 11/24/17 11/24/17 07:54 12:46 13:33 Sodium 128 L Potassium 3.2 L Chloride 81 L Carbon Dioxide 36.4 H Anion Gap 11 BUN 31 H Creatinine 1.30 H Estimated GFR 40 L POC Glucose 306 H 365 H Random Glucose 185 H Calcium 7.8 L D Magnesium 2.4 11/24/17 11/24/17 11/24/17 13:35 14:33 16:16 Sodium Potassium Chloride Carbon Dioxide Anion Gap BUN Creatinine Estimated GFR POC Glucose 371 H 390 H 300 H Random Glucose Calcium Magnesium 11/24/17 11/25/17 20:25 04:15 Sodium 130 L Potassium 3.2 L Chloride 86 L Carbon Dioxide 35.3 H Anion Gap 9 BUN 25 H Creatinine 1.09 H Estimated GFR 50 L POC Glucose 156 H Random Glucose 113 H Calcium 7.5 L Magnesium - Imaging Impressions Shoulder X-Ray 11/24/17 00:00 CONCLUSION: Postsurgical changes as above. Assessment and Plan - Ortho Post Op Day # 1 - Problem List (1) Fracture of proximal humerus Code(s): S42.209A - Unspecified fracture of upper end of unspecified humerus, initial encounter for closed fracture Status: Acute Qualifiers: Plan: She is now postop day #1. Her dressing remains clean, dry and intact. The dressing can be maintained in place until she follows up in 1-2 weeks. Follow-up with practitioner and one half weeks. She can perform gentle pendulum exercises and active assisted range of motion exercises. She has Percocet pain pills at home, to be used for pain control. From an orthopedic standpoint, she can be discharged. From a medical standpoint, she may need to be monitored 2 clarify if she is stable to go home from a balance standpoint from her diabetes standpoint. A mid level provider in my office, nurse practitioner or PA, may see this patient on a follow up basis and continue to implement the plan including: starting or adjusting medications, injections of muscle, tendons, bursa or joints, cast application, orthotic or brace application, physical therapy, further radiographic studies including X-ray, MRI, CT, ultrasound or bone scan , vascular studies, neurological studies, or other specialist consultations, and proceeding with surgical management as appropriate.
[2017-11-25] MEDS: Senna/Docusate Sodium 8.6/50 MG Tablet PO SCH ×2 (09:10→21:13)
[2017-11-25] MEDS: Levothyroxine 125 MCG Tablet PO SCH (09:10)
[2017-11-25] MEDS: predniSONE 20 MG Tablet PO SCH (09:10)
[2017-11-25] MEDS: dilTIAZem CD 240 MG Capsule PO SCH (09:11)
[2017-11-25] MEDS: Hydroxychloroquine 200 MG Tablet PO SCH ×2 (09:11→21:12)
[2017-11-25] MEDS ORDERED: Potassium Chloride 25 MEQ Effervescent Tablet PO ONE (11:53)
[2017-11-25] MEDS ORDERED: Potassium Chlor 20 mEq Premix 20 MEQ/100 ML PIGGYBACK IV.SIG SCH (12:00)
[2017-11-25] MEDS: PT OWN CHLORTHALIDONE 25 MG PO SCH (12:44)
--- NOTE | 2017-11-25 13:37 | P.PNIM ---
Subjective Interval history: Minimal pain right shoulder. Refusing oral potassium replacement. Also refusing rehab placement including CIR. After further convincing, [facility] but she does not want to go to a intermediate facility even though she understands the risks. Physical Exam Vital signs: Vital Signs 11/24/17 13:45 11/24/17 14:00 11/24/17 14:55 Temperature 98.8 F Pulse Rate 71 71 69 Respiratory Rate 18 19 Blood Pressure 130/59 L 127/61 118/57 L Pulse Oximetry 96 96 97 11/24/17 16:00 11/24/17 20:00 11/25/17 00:00 Temperature 98.3 F 98.2 F 98.1 F Pulse Rate 70 67 78 Respiratory Rate 16 18 16 Blood Pressure 148/63 H 133/68 130/69 Pulse Oximetry 97 100 94 L 11/25/17 04:00 11/25/17 08:00 11/25/17 12:00 Temperature 98.0 F 98.6 F 97.1 F L Pulse Rate 74 76 73 Respiratory Rate 16 15 15 Blood Pressure 118/68 156/69 H 130/58 L Pulse Oximetry 95 100 97 Intake & Output 11/24/17 11/25/17 11/25/17 18:59 06:59 18:59 Intake Total 1999 / 1999 1100 / 1100 1000 / 1000 Output Total 50 / 50 50 / 50 Balance 1949 / 1949 1100 / 1100 950 / 950 Intake: IV 1100 / 1100 1100 / 1100 NS + KCl 20 mEq Inj 1,000 ML @ 1000 / 1000 100 mls/hr IV.CONT .Q10H FERMIN Rx #:[id number] 1/2 Normal Saline Inj 1,000 ML 1000 / 1000 @ 100 mls/hr IV.CONT .Q10H FERMIN Rx#:[id number] Ancef Inj 2,000 MG In NS Inj 80 100 / 100 100 / 100 ML @ 200 mls/hr IV.SIG Q8H FERMIN Rx#:[id number] Oral 100 / 100 Anesthesia Amount 900 / 900 900 / 900 Output: Estimated Blood Loss 50 / 50 50 / 50 Other: # Voids 3 Date of Last Bowel Movement 11/22/17 11/22/17 11/22/17 # Bowel Movements 0 Narrative: GENERAL: This is a well-nourished, well-developed patient, in no apparent distress. CARDIOVASCULAR: Regular rate and rhythm without murmurs, gallops, or rubs. RESPIRATORY: Clear to auscultation. Breath sounds equal bilaterally. No wheezes , rales, or rhonchi. GASTROINTESTINAL: Abdomen soft, non-tender, nondistended. Normal active bowel sounds MUSCULOSKELETAL: Extremities without clubbing, cyanosis, or edema. Right upper arm sling in place. NEURO: Awake, alert, oriented 3. No focal deficits. Results - Labs CBC & Chem 7: 11/24/17 04:21 11/25/17 04:15 Laboratory Results - last 24 hr 11/24/17 11/24/17 11/24/17 13:33 13:35 14:33 Sodium Potassium Chloride Carbon Dioxide Anion Gap BUN Creatinine Estimated GFR POC Glucose 365 H 371 H 390 H Random Glucose Calcium 11/24/17 11/24/17 11/25/17 16:16 20:25 04:15 Sodium 130 L Potassium 3.2 L Chloride 86 L Carbon Dioxide 35.3 H Anion Gap 9 BUN 25 H Creatinine 1.09 H Estimated GFR 50 L POC Glucose 300 H 156 H Random Glucose 113 H Calcium 7.5 L - Imaging Impressions Shoulder X-Ray 11/24/17 00:00 CONCLUSION: Postsurgical changes as above. Assessment and Plan - Plan 71 y/o female with a history of DM, COPD, hypothyroid, and RA presented to the ER after having a fall at home on Tuesday. Right humerus fracture -CT reviewed and shows a comminuted fracture involving the humeral neck and humeral head. Orthopedics consulted, status post surgery , continue pain control. Acute kidney injury-creatinine 1.6-8 on admission, almost resolved. Recheck BMP. Hyponatremia- likely secondary to dehydration, improving, from 123 now up to 130 , increase normal saline, recheck BMP tomorrow. DM, chronic, currently uncontrolled, per patient secondary to prednisone -Accu checks with SSI increase sliding-scale to high-dose. copd, chronic not in exacerbation -Duonebs prn Rheumatoid arthritis having continue prednisone HTN, chronic -Resume home medications, monitor vitals. Hypokalemia-replaced intravenously, patient refusing oral replacement and does not want the IV replacement as well as it newsome, will infuse us 10 mEq/h. DVT prophylaxis: SCDs Patient needs rehab, patient refuses rehab including CIR. After further convincing, she will think about going to [place] rehab but she does not want to go to a intermediate facility even though she understands the risks.
--- NOTE | 2017-11-25 13:41 | P.DCO ---
- Diagnosis (1) Fracture of proximal humerus - Physical Therapy Order: Evaluate and treat - Occupational Therapy Order: Evaluate and treat - Certification I have seen patient Almita Martinez Eckdahl on 11/25/17. My clinical findings support the need for the requested home health care services because: Deconditioned with increased weakness, High risk of falls I certify that my clinical findings support that this patient is homebound because: Post-op weakness, Unsteady gait/balance (1) Fracture of proximal humerus Qualifiers: Encounter type: subsequent encounter Fracture type: closed Fracture alignment: displaced Laterality: right
--- NOTE | 2017-11-25 13:44 | P.DS ---
Date of admission: 11/23/17 18:53 Primary care physician: UNKNOWN Brief History from admission: 71 y/o female with a history of DM, COPD, hypothyroid, and RA presented to the ER after having a fall at home on Tuesday. She was evaluated at [facility] , diagnosed with a fracture and sent home to follow up with an orthopedic. Upon examination patient has just received Dilaudid for pain and is very drowsy. Family is at bedside and is able to provide history. The brother states since Tuesday she has not been eating or drinking well and only taking pain medication. The orthopedic office did not call them back so she was unable to get an appointment. Her mentation has gotten worse over the passed few days as well and she has become weaker. Patient is able to open her eyes and denies pain , but falls back asleep quickly. Denies any pain and does not appear sob. Family denies any kidney issues. DS: Diagnosis - Discharge Diagnosis (1) Fracture of proximal humerus Status: Acute DS: Summary Hospital Course: 71 y/o female with a history of DM, COPD, hypothyroid, and RA presented to the ER after having a fall at home on Tuesday. Patient presented to her orthopedic surgeon for follow-up and was sent to the hospital. CT scan of the right shoulder showed a right humerus fracture. Orthopedics was consulted, status post repair. Continue pain control. Patient was also found to have acute kidney injury, hyponatremia and hypokalemia. Lasix was held for a few days. Chlorthalidone was stopped because of hyponatremia that was severe. Patient's acute renal failure and hyponatremia improved with volume resuscitation with normal saline. Potassium was replaced intravenously. She can restart her Lasix the chlorthalidone was stopped on discharge. half-way facility versus acute rehab was advised. Patient needs rehab, patient refuses rehab including CIR. After effort to convince her with the help of her sister, she refuses [place] rehab. Patient will be d/c home with [facility] once electrolytes are optimized. - Time Spent with Patient Total time spent providing and/or coordinating discharge services: Greater than 30 minutes - Quality: VTE Deep Vein Thrombosis/Pulmonary Embolism Present on Admission: No Exam Vital signs: Vital Signs 11/24/17 13:45 11/24/17 14:00 11/24/17 14:55 Temperature 98.8 F Pulse Rate 71 71 69 Respiratory Rate 18 19 Blood Pressure 130/59 L 127/61 118/57 L Pulse Oximetry 96 96 97 11/24/17 16:00 11/24/17 20:00 11/25/17 00:00 Temperature 98.3 F 98.2 F 98.1 F Pulse Rate 70 67 78 Respiratory Rate 16 18 16 Blood Pressure 148/63 H 133/68 130/69 Pulse Oximetry 97 100 94 L 11/25/17 04:00 11/25/17 08:00 11/25/17 12:00 Temperature 98.0 F 98.6 F 97.1 F L Pulse Rate 74 76 73 Respiratory Rate 16 15 15 Blood Pressure 118/68 156/69 H 130/58 L Pulse Oximetry 95 100 97 Intake & Output 11/24/17 11/25/17 11/25/17 18:59 06:59 18:59 Intake Total 1999 / 1999 1100 / 1100 1000 / 1000 Output Total 50 / 50 50 / 50 Balance 1950 / 1950 1100 / 1100 950 / 950 Intake: IV 1100 / 1100 1100 / 1100 NS + KCl 20 mEq Inj 1,000 ML @ 1000 / 1000 100 mls/hr IV.CONT .Q10H FERMIN Rx #:[id number] 1/2 Normal Saline Inj 1,000 ML 1000 / 1000 @ 100 mls/hr IV.CONT .Q10H FERMIN Rx#:[id number] Ancef Inj 2,000 MG In NS Inj 80 100 / 100 100 / 100 ML @ 200 mls/hr IV.SIG Q8H FERMIN Rx#:[id number] Oral 100 / 100 Anesthesia Amount 900 / 900 900 / 900 Output: Estimated Blood Loss 50 / 50 50 / 50 Other: # Voids 3 Date of Last Bowel Movement 11/22/17 11/22/17 11/22/17 # Bowel Movements 0 Results Procedures completed during hospitalization: R humerus ORIf Labs on day of discharge: Labs from last 24 hours 11/25/17 11/24/17 11/24/17 04:15 20:25 16:16 Sodium 130 L Potassium 3.2 L Chloride 86 L Carbon Dioxide 35.3 H Anion Gap 9 BUN 25 H Creatinine 1.09 H Estimated GFR 50 L POC Glucose 156 H 300 H Random Glucose 113 H Calcium 7.5 L 11/24/17 14:33 Sodium Potassium Chloride Carbon Dioxide Anion Gap BUN Creatinine Estimated GFR POC Glucose 390 H Random Glucose Calcium - Impressions ITS Impressions Chest X-Ray 11/23/17 16:52 CONCLUSION: Diffuse chronic interstitial changes with possible pulmonary nodule on the right. CT imaging of the thorax is warranted for further assessment. Shoulder CT 11/23/17 16:52 CONCLUSION: 1. Comminuted fracture involving the humeral neck and humeral head. There is a proximally 70-80% displacement of the humeral neck relative to the humeral head. No bone fragments are identified within the joint. Shoulder X-Ray 11/24/17 00:00 CONCLUSION: Postsurgical changes as above. Discharge Plan - Discharge Disposition Patient Disposition: 64 Rehab Inpatient - Discharge Condition Condition: Good - Discharge Order Discharge Orders: Discharge Order (Routine); Ordered 11/25/17 Ordered By: Lin Stovall - Discharge Details Anticipated Discharge Date: 11/25/17 Discharge Comment: D/C if repeat Na is >132 and K is better after BMP at 3 pm - Physicians Team Primary Care Provider: UNKNOWN, Attending Provider: Lin Stovall Other Providers: Hieu Hendricks MD
[2017-11-25] MEDS ORDERED: Potassium Chlor 10 mEq Premix 10 MEQ/100 ML PIGGYBACK IV.SIG SCH (14:00)
[2017-11-25 20:03] LABS: Calcium 8.2 mg/dL (8.5-10.1); Carbon Dioxide 34.6 meq/L (21.0-32.0); Potassium 3.8 meq/L (3.5-5.1)
[2017-11-26] MEDS: Levothyroxine 125 MCG Tablet PO SCH (06:14)
[2017-11-26 07:51] LABS: Calcium 8.4 mg/dL (8.5-10.1); Carbon Dioxide 32.8 meq/L (21.0-32.0); Potassium 3.3 meq/L (3.5-5.1)
--- NOTE | 2017-11-26 08:35 | P.PN ---
Subjective Interval history: patient denies any pain wanting to go home- does not want to go to rehab she was a nurse and retired Physical Exam Vital signs: Vital Signs 11/25/17 12:00 11/25/17 20:00 11/26/17 00:00 Temperature 97.1 F L 97.7 F Pulse Rate 73 73 80 Respiratory Rate 15 17 Blood Pressure 130/58 L 157/66 H Pulse Oximetry 97 100 Intake & Output 11/25/17 11/26/17 11/26/17 18:59 06:59 18:59 Intake Total 1000 / 1000 Output Total 50 / 50 Balance 950 / 950 Intake: Oral 100 / 100 Anesthesia Amount 900 / 900 Output: Estimated Blood Loss 50 / 50 Other: # Voids 3 Date of Last Bowel Movement 11/22/17 11/22/17 # Bowel Movements 0 Narrative: awake and alert, oriented x 3, no distress anictric lungs- no rales,. no wheezes regular rhtyhm abdomen soft RUE- S/S in place, good radial pusles extremities no edema Results - Labs CBC & Chem 7: 11/24/17 04:21 11/26/17 06:22 Laboratory Results - last 24 hr 11/25/17 11/25/17 11/26/17 19:30 20:08 06:22 Sodium 128 L 131 L Potassium 3.8 3.3 L Chloride 83 L 87 L Carbon Dioxide 34.6 H 32.8 H Anion Gap 10 11 BUN 25 H 21 H Creatinine 1.16 H 0.86 Estimated GFR 46 L 65 L POC Glucose 329 H Random Glucose 278 H D 92 D Calcium 8.2 L 8.4 L - Procedures R humerus ORIf Assessment and Plan - Assessment (1) Fracture of proximal humerus Code(s): S42.209A - Unspecified fracture of upper end of unspecified humerus, initial encounter for closed fracture Status: Acute Onset Date: ~11/18/17 - Plan 71 y/o female right handed female with a history of DM, COPD, hypothyroid, and RA presented to the ER after having a fall at home on Tuesday. Right humerus fracture S/P ORIF 11/24 - cleared by Orthopedics for discharge - PT daily - pain controlled - will benefit from rehab- but patient adamantly refused Acute kidney injury-creatinine 1.6-8 on admission, almost resolved. Hyponatremia- improving-asymtpomatic - likely secondary to dehydration-on review also on Furosemide 40 mg daily for peripheral edema most likely secondary to chronic Prednisone - check TSH- history of hypothroidism - patient takes good po- heplock IV - no signs of fluid excess - OP ff up with PCP Hypokalemia- give x 1 po KCL - was on lasix 40 mg daily-on hold d/w her to decrease lasix 20 mg daily as OP if needed prn = BMP in am DM, chronic, currently uncontrolled, per patient secondary to prednisone - on further questioning- she is on a 1x a week Insulin regimen -Accu checks with SSI increase sliding-scale to high-dose. - ff by PCP- Dr. Garza Copd, chronic not in exacerbation- 02 dependent -Duonebs prn - patient has home 02 Rheumatoid arthritis - continue prednisone 20 mg maintenance dose - has Percocet prn at home for pain HTN, chronic -DC furosemide with MONSE and low K - start Hydralazine 10 mg po bid DVT prophylaxis: SCDs, up and ambulating Patient needs rehab, patient refuses rehab including CIR. seen with sister at bedside who states she and brother cannot take her home on further questioning- she has HHC 5x a week (1) Fracture of proximal humerus Qualifiers: Encounter type: subsequent encounter Fracture type: closed Fracture alignment: displaced Laterality: right
[2017-11-26] MEDS ORDERED: Senna/Docusate Sodium 8.6/50 MG Tablet PO SCH (09:00)
[2017-11-26] MEDS: Hydroxychloroquine 200 MG Tablet PO SCH (09:22)
[2017-11-26] MEDS: predniSONE 20 MG Tablet PO SCH (09:22)
[2017-11-26] MEDS: Senna/Docusate Sodium 8.6/50 MG Tablet PO SCH (09:22)
[2017-11-26] MEDS: PT OWN CHLORTHALIDONE 25 MG PO SCH (09:23)
[2017-11-26] MEDS: dilTIAZem CD 240 MG Capsule PO SCH (09:23)
[2017-11-26] MEDS: Insulin NovoLOG Aspart Correctional Sugar Inj SQ SCH ×2 (09:31→12:34)
[2017-11-26] MEDS ORDERED: hydrALAZINE 10 MG Tablet PO SCH (09:45)
[2017-11-26] MEDS ORDERED: amLODIPine 5 MG Tablet PO SCH (10:00)
[2017-11-29 17:51] VITALS: BP 141/63; PULSE 82; RESP 16; TEMP 97.7; O2SAT 97
== END 2017-11-26 15:27 | disposition home health service (06) ==
LOC: NEPE 15:52 → NEDA 18:53 → N06 21:03
PROVIDERS: ADMIT Internal Medicine; ATTEND Internal Medicine
PROC: [UNRECOGNIZED PROCEDURE] (2017-11-24 10:43)